=== PATIENT | female | born 2000 | race African-American/Black ===

== ENCOUNTER 2024-01-10 23:55 | Emergency (ER) | payer OTHER ==
[~2024-01-10] VITALS: Ht 167.6 cm; Wt 4.9 kg
[~2024-01-10 23:55] MED LIST: NO MEDS
[2024-01-11 01:36] VITALS: TEMP 98.1
[2024-01-11 02:50] VITALS: BP 115/80; PULSE 78; RESP 18; O2SAT 98
== END 2024-01-11 02:58 ==
LOC: EMS 23:56
DX: S16.1XXA Strain of muscle, fascia and tendon at neck level, initial encounter (principal); V09.9XXA Pedestrian injured in unspecified transport accident, initial encounter; Y93.89 Activity, other specified; Y92.410 Unspecified street and highway as the place of occurrence of the external cause; Y99.8 Other external cause status
CPT/HCPCS: 72040; 99283